=== PATIENT | female | born 1955 | race Caucasian/White ===

== ENCOUNTER → 2023-03-02 | Emergency (ER) | payer OTHER ==
[~2023-03-02] MED LIST: TDAP (DIPHTH,PERTUSS(ACELL),TET VAC) 0.5 ML VIAL IMVAC ONE
--- NOTE | 2023-03-02 13:39 | RAD REPORT ---
EXAM DESCRIPTION: RAD - Hand Left 3 View - 03/02/2023 1:29 pm CLINICAL HISTORY: 4th digit distal injury COMPARISON: No comparisons FINDINGS: Comminuted fracture of the distal phalanx of the fourth finger is seen with mild soft tiss ue swelling. Elsewhere no acute fractures seen.
--- NOTE | 2023-03-02 14:16 | EDPHYS ---
Physician Documentation [facility] Name: Adrienne Kruse Age: 67 yrs Sex: Female : 1955 Arrival Date: 03/02/2023 Time: 12:28 Bed 9 Private MD: ED Physician Chino Pelletier HPI: 03/02 13:21 This 67 yrs old Female presents to ER via Ambulatory with complaints of ec2 Finger Injury. 13:21 Patient arrives today for evaluation of injury to the left fourth finger. States that ec2 she was drilling something and subsequently slipped and it injured the distal portion. Reports no other injuries, unsure of her tetanus shot.. Historical: - Allergies: 12:52 No Known Allergies; ll1 - PMHx: 12:52 None; ll1 - PSHx: 12:52 None; ll1 - Immunization history:: Adult Immunizations up to date, Last tetanus immunization: < 10 years ago. - Social history:: Smoking status: Patient reports the use of cigarette tobacco products, smokes one pack cigarettes per day. ROS: 13:21 Constitutional: as per hpi ec2 Exam: 13:21 Constitutional: GEN: NAD Head: atraumatic Eyes: EOMI Ears: External ears are ec2 normal. CV: regular rate LUNGS: no respiratory distress ABD: non-distended SKIN: Left fourth digit with left distal phalanx noted to have a small puncture wound to the proximal portion of the distal phalanx. MSK: no evidence of trauma NEURO: moves all extremities equally Vital Signs: 12:50 BP 133 / 80; Pulse 70; Resp 16; Temp 97.4; Pulse Ox 95% ; Weight 104.33 kg; Height 5 ll1 ft. 9 in. ; Pain 0/10; 12:50 Body Mass Index 33.96 (104.33 kg, 175.26 cm) ll1 12:50 Pain Scale: Adult ll1 MDM: 12:59 Patient medically screened. ec2 13:21 Data reviewed: vital signs. ED course: Patient arrives today for evaluation of a left ec2 fourth digit injury. Examination remarkable for findings as above. Will update patient's tetanus status, also obtain a radiograph of the left hand. Considering soft tissue injury, bony fracture. Patient is already made statement that she would not like to have surgery and would not be admitted. . 14:15 ED course: Distal comminuted phalanx fracture of the second digit on the left hand, my ec2 concern is for an open fracture requiring urgent washout. I informed the patient of that, she would not want to be admitted, states that she does have a orthopedic surgeon that she follows with and she will get them a call. Will start her on antibiotics regardless.. 03/02 13:09 Order name: Hand Left 3 View XRAY; Complete Time: 14:01 ec2 03/02 14:14 Order name: Finger Splint; Complete Time: 14:33 ec2 Administered Medications: 13:01 Drug: Boostrix Tdap IM 0.5 ml IM once; as a single dose Route: IM; Site: right deltoid; as6 13:52 Follow up: Response: (VIS) Vaccine information sheet provided today. Questions and/or as6 concerns addressed. VIS edition date: Sep 13, 2020.; No adverse reaction Disposition Summary: 03/02/23 14:16 Discharge Ordered Condition: Stable ec2 Diagnosis - Open Finger Fracture ec2 Followup: ec2 - With: Private Physician - When: - Reason: Recheck today's complaints Discharge Instructions: - Discharge Summary Sheet ec2 - Finger Fracture, Adult, [id number] ec2 Forms: - Medication Reconciliation Form ec2 - Thank You Letter ec2 - Antibiotic Education ec2 - Prescription Opioid Use ec2 - Patient Portal Instructions ec2 - Leadership Thank You Letter ec2 Prescriptions: - Clindamycin HCl 300 mg Oral Capsule - take 1 capsule ORAL route every 6 hours for 10 days; 40 capsule; Refills: 0, ec2 Product Selection Permitted Signatures: Dispatcher [employer] Amada Grififth RN RN ll1 Zak Tse RN RN as6 Chino Pelletier MD MD ec2
--- NOTE | 2023-03-02 14:16 | ER ---
Nurse's Notes [facility] Name: Adrienne Kruse Age: 67 yrs Sex: Female : 1955 Arrival Date: 03/02/2023 Time: 12:28 Bed 9 Private MD: Diagnosis: Open Finger Fracture Presentation: 03/02 12:50 Chief complaint: Patient states: Drill bit accidentally drilled into L hand 4th digit ll1 last night. Coronavirus screen: Client denies travel out of the [place] in the last 14 days. At this time, the client does not indicate any symptoms associated with coronavirus-19. Ebola Screen: Patient denies travel to an Ebola-affected area in the 21 days before illness onset. Initial Sepsis Screen: Does the patient meet any 2 criteria? No. Patient's initial sepsis screen is negative. Does the patient have a suspected source of infection? Yes: Skin breakdown/wound. Risk Assessment: Do you want to hurt yourself or someone else? Patient reports no desire to harm self or others. Onset of symptoms was March 01, 2023. 12:50 Method Of Arrival: Ambulatory ll1 12:50 Acuity: DARIO 4 ll1 Triage Assessment: 12:53 General: Appears uncomfortable, Behavior is calm, cooperative, appropriate for age. ll1 Pain: Complains of pain in left hand Quality of pain is described as aching. Musculoskeletal: Circulation, motion, and sensation intact. Capillary refill < 3 seconds. Injury Description: Puncture. Historical: - Allergies: 12:52 No Known Allergies; ll1 - PMHx: 12:52 None; ll1 - PSHx: 12:52 None; ll1 - Immunization history:: Adult Immunizations up to date, Last tetanus immunization: < 10 years ago. - Social history:: Smoking status: Patient reports the use of cigarette tobacco products, smokes one pack cigarettes per day. Screenin:01 [facility] ED Fall Risk Assessment (Adult) Score/Fall Risk Level 0 - 2 = Low Risk. Abuse as6 screen: Denies threats or abuse. Denies injuries from another. Nutritional screening: No deficits noted. Tuberculosis screening: No symptoms or risk factors identified. Assessment: 13:01 Reassessment: Patient appears in no apparent distress at this time. Patient and/or as6 family updated on plan of care and expected duration. Pain level reassessed. Patient is alert, oriented x 3, equal unlabored respirations, skin warm/dry/pink. Vital Signs: 12:50 BP 133 / 80; Pulse 70; Resp 16; Temp 97.4; Pulse Ox 95% ; Weight 104.33 kg; Height 5 ll1 ft. 9 in. ; Pain 0/10; 12:50 Body Mass Index 33.96 (104.33 kg, 175.26 cm) ll1 12:50 Pain Scale: Adult ll1 ED Course: 12:32 Patient arrived in ED. ts1 12:44 Chino Pelletier MD is Attending Physician. ec2 12:52 Triage completed. ll1 12:53 Arm band placed on. ll1 12:55 Emely Martinez, RN is Primary Nurse. ph 13:01 Bed in low position. Call light in reach. as6 13:31 Hand Left 3 View XRAY In Process Unspecified. EDMS Administered Medications: 13:01 Drug: Boostrix Tdap IM 0.5 ml IM once; as a single dose Route: IM; Site: right deltoid; as6 13:52 Follow up: Response: (VIS) Vaccine information sheet provided today. Questions and/or as6 concerns addressed. VIS edition date: Sep 13, 2020.; No adverse reaction Medication: 13:01 Vaccine Information Statement (VIS) provided today. Questions and/or concerns as6 addressed. VIS edition date: September 13, 2020. Outcome: 14:16 Discharge ordered by . ec2 14:33 Patient left the ED. iw Signatures: Dispatcher [employer] Janeth Smyth RN RN iw Emely Martinez, Amada Fischer RN, ph, RN RN 1 Zak Tse RN RN as6 Yaritza Escamilla PAS PAS ts1 Chino Pelletier MD MD ec2
[2023-03-02 16:28] VITALS: BP 133/80; TEMP 97.4; O2SAT 95
== END ==
LOC: ER 12:28
DX: S62.665B Nondisplaced fracture of distal phalanx of left ring finger, initial encounter for open fracture (principal); F17.210 Nicotine dependence, cigarettes, uncomplicated
CPT/HCPCS: 96372; 99283

== ENCOUNTER 2024-07-04 12:36 | Emergency (ER) | payer OTHER ==
[2024-07-04] MEDS ORDERED: NA CHLORIDE 0.9% 1,000 ML ONE (13:31)
[2024-07-04 13:35] LABS: Absolute Basophils 0.1 K/uL (0-0.5); Absolute Eosinophils 0.3 K/uL (0-0.5); Absolute Lymphocytes (CBC) 1.7 K/uL (0.7-4.9); Absolute Monocytes 0.7 K/uL (0.1-1.3); Absolute Neutrophil 4.6 K/uL (1.8-8.0); Basophils % 0.7 % (0-1.3); Eosinophils % 3.7 % (0-4.4); Hematocrit 33.7 % (36.0-45.0); Lymphocytes % 23.1 % (15.3-44.8); MCH 33.9 pg (27.0-35.0); MCHC 35.8 g/dL (32.0-36.0); MCV 94.9 fL (80-100); MPV 10.7 fL (7.6-11.3); Monocytes % 9.1 % (3.3-12.3); Neutrophils % 63.4 % (41.7-73.7); Nucleated Red Blood Cells % 0.1 % (0-0); Platelets 189 thou/uL (152-406); RBC Red Blood Cell Count 3.55 M/uL (3.86-4.86); Red Cell Distribution Width 14.9 % (12.1-15.2)
[2024-07-04 13:42] LABS: PT Prothrombin Time 14.9 SECONDS (10-13.0); PTT, Activated Partial Thromb 35.8 SECONDS (27.2-37.4); Protime INR 1.32
[2024-07-04 13:53] LABS: Albumin 2.8 g/dL (3.4-5.0); Albumin/Globulin Ratio 0.7 (1.1-1.8); Anion Gap 11.3 mEq/L (5.0-15.0); Bilirubin Direct 9.6 mg/dL (0-0.2); Bilirubin Indirect, Calculated 1.6 mg/dL (0.2-0.8); Bilirubin Total 11.2 mg/dL (0.2-1.0); Globulin 3.9 g/dL (2.3-3.5); Potassium 3.3 mEq/L (3.5-5.1); Protein, Total 6.7 g/dL (6.4-8.2)
--- NOTE | 2024-07-04 14:27 | RAD REPORT ---
EXAMINATION: CT ABDOMEN AND PELVIS WITH CONTRAST CLINICAL INDICATION: diarrhea, jaundice TECHNIQUE: CT abdomen and pelvis was performed, after the administration of IV contrast, as per [facility] protocol. Axial, sagittal and coronal reconstructions were obtained. One or more of the following dose reduction techniques were used: Automated exposure control, adjustment of the mA and k V according to patient size, and iterative reconstruction. Unless otherwise specified, incidental findings do not require dedicated imaging follow-up. COMPARISON: No prior exam. FINDINGS: LOWER CHEST: The visualized lung bases are clear. LIVER: There is moderate to severe intrahepatic biliary tree dilatation. Grossly unremarkable gallbla dder. SPLEEN: Normal size. No focal lesion. PANCREAS: There is severe pancreatic ductal dilatation. Hypodense mass in the neck of the pancreas me asuring 37 x 13 mm. Vague low-density lesion measuring 16 mm in the region of the head of the pancreas near the uncinate process. ADRENALS: Normal; no mass. KIDNEYS: Normal size and contour. No hydronephrosis. GASTROINTESTINAL TRACT: No evidence of free air, significant intra-abdominal free fluid, bowel obstru ction or abscess. APPENDIX: Normal appendix. LYMPH NODES: No lymphadenopathy. MUSCULOSKELETAL: Mild multilevel spinal degenerative changes. IMPRESSION: Severe intrahepatic and pancreatic ductal dilatation suggestive of a obstructing mass in the pancreat ic head region. Vague low-density lesion is seen measuring 16 mm in the region. ERCP would be recommended for further evaluation. GI nonemergent consultation suggested. 37 x 13 mm low-density mass along the neck of the pancreas anteriorly.
--- NOTE | 2024-07-04 14:57 | EDPHYS ---
Physician Documentation [facility] Name: Adrienne Kruse Age: 68 yrs Sex: Female : 1955 Arrival Date: 07/04/2024 Time: 12:36 Bed 18 Private MD: ED Physician Mahendra Grande HPI: 07/04 14:12 This 68 yrs old Female presents to ER via Ambulatory with complaints of Diarrhea. rt 14:12 Patient was in [place] about 1 month ago, states that she developed diarrhea, rt progressively worsening jaundice. Reports abdominal cramping but no overt pain. Reports nausea without vomiting as well as fatigue. Denies other acute complaints at this time, symptoms are moderate in severity, no other aggravating or alleviating factors.. Historical: - Allergies: 12:41 No Known Allergies; ss - PMHx: 12:41 a fib; Hypothyroidism; ss - PSHx: 12:41 wrist SX; ss - Immunization history:: Adult Immunizations up to date. - Infectious Disease History:: Denies. - Social history:: Smoking status: Patient denies any tobacco usage or history of. - Family history:: not pertinent. ROS: 14:12 Cardiovascular: Negative for chest pain, palpitations, and edema, Respiratory: Negative rt for shortness of breath, cough, wheezing, and pleuritic chest pain, MS/Extremity: Negative for injury and deformity, 14:12 Constitutional: Positive for fatigue, Negative for fever, 14:12 Eyes: Positive for icterus, 14:12 Abdomen/GI: Positive for nausea, diarrhea, 14:12 Skin: Positive for jaundice, Exam: 14:12 Constitutional: This is a well developed, well nourished patient who is awake, alert, rt and in no acute distress. Chest/axilla: Normal chest wall appearance and motion. Nontender with no deformity. No lesions are appreciated. Cardiovascular: Regular rate and rhythm with a normal S1 and S2. No gallops, murmurs, or rubs. Normal PMI, no JVD. No pulse deficits. Respiratory: Lungs have equal breath sounds bilaterally, clear to auscultation and percussion. No rales, rhonchi or wheezes noted. No increased work of breathing, no retractions or nasal flaring. Abdomen/GI: Soft, non-tender, with normal bowel sounds. No distension or tympany. No guarding or rebound. No evidence of tenderness throughout. 14:12 Eyes: Scleral icterus noted. 14:12 Skin: Skin is jaundiced. Vital Signs: 12:48 BP 122 / 69; Pulse 60; Resp 16; Temp 96.3; Pulse Ox 98% on R/A; Weight 97.07 kg; Height ss 5 ft. 8 in. ; Pain 1/10; 13:30 BP 118 / 67; Pulse 63; Resp 16; Pulse Ox 100% ; dd2 14:23 BP 121 / 64; Pulse 61; Resp 16; Pulse Ox 100% on R/A; dd2 14:23 BP 126 / 67; Pulse 68; Resp 17; Pulse Ox 100% on R/A; dd2 12:48 Body Mass Index 32.54 (97.07 kg, 172.72 cm) ss 12:48 Pain Scale: Adult ss [place] Coma Score: 12:59 Eye Response: spontaneous(4). Motor Response: obeys commands(6). Verbal Response: dd2 oriented(5). Total: 15. MDM: 12:46 Medical Screening Exam initiated rt 15:38 Differential diagnosis: Hepatitis, viral syndrome, liver failure, pancreatic mass. Data rt reviewed: vital signs, nurses notes, lab test result(s), EKG, radiologic studies. Consideration of Admission/Observation Recommended the patient be transferred for higher level of care, she declines transfer at this time, will leave AGAINST MEDICAL ADVICE. Instructed patient to follow-up as an outpatient.. I considered the following discharge prescriptions or medication management in the emergency department Medications were administered in the Emergency Department. See MAR. Independent interpretation of the following test(s) in the Emergency Department CT Scan: My interpretation is Biliary ductal dilation seen on interpretation of CT scan images. Care significantly affected by the following chronic conditions: Atrial fibrillation. Counseling: I had a detailed discussion with the patient and/or guardian regarding the historical points, exam findings, and any diagnostic results supporting the discharge/admit diagnosis, lab results, radiology results. Response to treatment: There is no appreciated change of the patient's symptoms at this time. 07/04 13:04 Order name: CBC with Diff; Complete Time: 13:50 rt 07/04 13:04 Order name: Lipase; Complete Time: 14:11 rt 07/04 13:04 Order name: BMP; Complete Time: 14:11 rt 07/04 13:04 Order name: LFT's; Complete Time: 14:11 rt 07/04 13:04 Order name: PT-INR; Complete Time: 13:50 rt 07/04 13:04 Order name: Ptt, Activated; Complete Time: 13:50 rt 07/04 13:04 Order name: Hepatitis Panel; Complete Time: 15:13 rt 07/04 13:04 Order name: UA Rfx Matthew Cult if indicated; Complete Time: 15:06 rt 07/04 13:04 Order name: CT Abd/Pelvis - IV Contrast Only; Complete Time: 14:29 rt 07/04 13:04 Order name: IV Saline Lock; Complete Time: 13:42 rt 07/04 13:04 Order name: Labs collected and sent; Complete Time: 13:42 rt Administered Medications: 13:42 Drug: NS 0.9% IV 1000 ml IV at 1 bolus Per protocol; to be given as a bolus over 60 dd2 minutes Route: IV; Rate: 1 bolus; Site: left antecubital; 15:29 Follow up: IV Status: Completed infusion dd2 Disposition Summary: 07/04/24 14:56 Left Against Medical Advice Notes: Location: Home rt Problem: new rt Symptoms: are unchanged rt Condition: Fair rt Diagnosis - Pancreatic mass rt - Hyperbilirubinemia rt - Transaminitis rt Followup: rt - With: Private Physician - When: 1 - 2 days - Reason: Discharge Instructions: - Discharge Summary Sheet rt - Pancreatic Cancer rt - Bilirubin Test rt Signatures: Dispatcher [employer] EDCarly Hurst RN RN ss Mahendra Grande MD MD rt TALITA PALUMBO RN RN dd2 Corrections: (The following items were deleted from the chart) 13:04 13:04 CBC+H.LAB.BRZ ordered. EDMS EDMS 13:04 13:04 LIPASE+C.LAB.BRZ ordered. EDMS EDMS 13:04 13:04 BASIC METABOLIC PANEL+C.LAB.BRZ ordered. EDMS EDMS 13:04 13:04 HEPATIC FUNCTION+C.LAB.BRZ ordered. EDMS EDMS 13:04 13:04 PROTIME (+INR)+COAG.LAB.BRZ ordered. EDMS EDMS 13:04 13:04 PTT, ACTIVATED+COAG.LAB.BRZ ordered. EDMS EDMS 13:04 13:04 Acute Hepatitis Panel+SC.LAB.BRZ ordered. EDMS EDMS : 13: UA Rfx Matthew Cult if indicated+U.LAB.BRZ ordered. EDMS EDMS : 13:05 Abdomen Pelvis W Con+CT.RAD.BRZ ordered. EDMS EDMS
--- NOTE | 2024-07-04 14:57 | ER ---
Nurse's Notes [facility] Name: Adrienne Kruse Age: 68 yrs Sex: Female : 1955 Arrival Date: 07/04/2024 Time: 12:36 Bed 18 Private MD: Diagnosis: Pancreatic mass;Hyperbilirubinemia;Transaminitis Presentation: 07/04 12:48 Chief complaint: Patient states: Diarrhea started in [place] 1 month ago. Eyes started ss to turn yellow yesterday so she came in to get checked. Coronavirus screen: Client denies travel out of the [place] in the last 14 days. At this time, the client does not indicate any symptoms associated with coronavirus-19. Ebola Screen: Patient denies travel to an Ebola-affected area in the 21 days before illness onset. Initial Sepsis Screen: Does the patient meet any 2 criteria? No. Patient's initial sepsis screen is negative. Does the patient have a suspected source of infection? No. Patient's initial sepsis screen is negative. Risk Assessment: Do you want to hurt yourself or someone else? Patient reports no desire to harm self or others. Onset of symptoms was June 04, 2024. 12:48 Method Of Arrival: Ambulatory ss 12:48 Acuity: DARIO 2 ss Historical: - Allergies: 12:41 No Known Allergies; ss - PMHx: 12:41 a fib; Hypothyroidism; ss - PSHx: 12:41 wrist SX; ss - Immunization history:: Adult Immunizations up to date. - Infectious Disease History:: Denies. - Social history:: Smoking status: Patient denies any tobacco usage or history of. - Family history:: not pertinent. Screenin:59 [facility] ED Fall Risk Assessment (Adult) History of falling in the last 3 months, dd2 including since admission No falls in past 3 months (0 pts) Confusion or Disorientation No (0 pts) Intoxicated or Sedated No (0 pts) Impaired Gait No (0 pts) Mobility Assist Device Used No (0 pt) Altered Elimination No (0 pt) Score/Fall Risk Level 0 - 2 = Low Risk Oriented to surroundings, Maintained a safe environment, Educated pt \T\ family on fall prevention, incl call for assistance when getting out of bed, Assessed \T\ reinforced patient's understanding of fall precautions, Hourly rounding (assess needs \T\ fall precautionary measures) done. Abuse screen: Denies threats or abuse. Denies injuries from another. Nutritional screening: No deficits noted. Tuberculosis screening: No symptoms or risk factors identified. Assessment: 12:59 General: Appears in no apparent distress. comfortable, Behavior is calm, cooperative, dd2 appropriate for age. Pain: Denies pain. Neuro: No deficits noted. Cardiovascular: No deficits noted. Respiratory: No deficits noted. GI: Abdomen is non-distended, Bowel sounds present X 4 quads. Abd is soft and non tender X 4 quads. Reports diarrhea. : Reports dark urine. EENT: No deficits noted. No signs and/or symptoms were reported regarding the EENT system. Derm: Skin is intact, Skin is jaundiced. Musculoskeletal: No deficits noted. No signs and/or symptoms reported regarding the musculoskeletal system. Circulation, motion, and sensation intact. Range of motion: intact in all extremities. Vital Signs: 12:48 BP 122 / 69; Pulse 60; Resp 16; Temp 96.3; Pulse Ox 98% on R/A; Weight 97.07 kg; Height ss 5 ft. 8 in. ; Pain 1/10; 13:30 BP 118 / 67; Pulse 63; Resp 16; Pulse Ox 100% ; dd2 14:23 BP 121 / 64; Pulse 61; Resp 16; Pulse Ox 100% on R/A; dd2 14:23 BP 126 / 67; Pulse 68; Resp 17; Pulse Ox 100% on R/A; dd2 12:48 Body Mass Index 32.54 (97.07 kg, 172.72 cm) ss 12:48 Pain Scale: Adult ss [place] Coma Score: 12:59 Eye Response: spontaneous(4). Motor Response: obeys commands(6). Verbal Response: dd2 oriented(5). Total: 15. ED Course: 12:40 Patient arrived in ED. gl 12:40 Mahendra Grande MD is Attending Physician. rt 12:41 Arm band placed on Patient placed in an exam room, on a stretcher. ss 12:49 Triage completed. ss 12:57 TALITA PALUMBO, DAREN is Primary Nurse. dd2 12:59 Patient has correct armband on for positive identification. Bed in low position. Call dd2 light in reach. Side rails up X 1. Client placed on continuous cardiac and pulse oximetry monitoring. NIBP monitoring applied. Door closed. Noise minimized. Warm blanket given. Pillow given. Verbal reassurance given. 12:59 Patient maintains SpO2 saturation greater than 95% on room air. dd2 13:43 Hepatitis Panel Sent. dd2 13:43 LFT's Sent. dd2 13:43 BMP Sent. dd2 13:43 No provider procedures requiring assistance completed. Initial lab(s) drawn, by me, dd2 sent to lab. Inserted saline lock: 20 gauge in left antecubital area, using aseptic technique. Blood collected. Flushed with 10 mL NS. Missed attempt(s): 20 gauge Bleeding controlled, band aid applied, catheter tip intact. 14:08 CT Abd/Pelvis - IV Contrast Only In Process Unspecified. EDMS 15:27 Provided Education on: AMA EDUCATION. dd2 15:27 IV discontinued, intact, bleeding controlled, No redness/swelling at site. Pressure dd2 dressing applied. Administered Medications: 13:42 Drug: NS 0.9% IV 1000 ml IV at 1 bolus Per protocol; to be given as a bolus over 60 dd2 minutes Route: IV; Rate: 1 bolus; Site: left antecubital; 15:29 Follow up: IV Status: Completed infusion dd2 Medication: 12:59 VIS not applicable for this client. dd2 Outcome: 15:27 AMA AMA form signed dd2 15:27 Condition: stable 15:27 Discharge instructions given to patient, Instructed on AMA EDUCATION Demonstrated understanding of AMA EDUCATION 15:29 Patient left the ED. dd2 Signatures: Dispatcher [employer] EDMS Carly Alanis RN RN ss Mahendra Grande MD MD rt TALITA PALUMBO RN RN dd2 Kenna [place], Reg Reg gl
[2024-07-04 14:59] LABS: Specific Gravity > 1.030 (1.005-1.030); Sqamous Epithelial <5 /HPF (None Seen); Urine Bacteria None Seen /HPF (<20); Urine Bilirubin 4+ (Over) (Negative); Urine Blood Negative (Negative); Urine Clarity Extremely Turbid (Clear); Urine Color Dark-Yellow (Yellow); Urine Culture Reflex Order NOT NEEDED; Urine Glucose NEGATIVE (Negative); Urine Ketones NEGATIVE (Negative); Urine Microscopic Reflex YN ORDER UMIC; Urine Mucus 1+ /HPF (None Seen); Urine Nitrite NEGATIVE (Negative); Urine Protein TRACE (Negative); Urine RBC None Seen /HPF (None Seen); Urine Urobilinogen 2+ (Normal); Urine WBC <5 /HPF (<5)
[2024-07-04 15:10] LABS: Hepatitis B Core IgM Nonreactive (Nonreactive); Hepatitis B surface AG Interp. Nonreactive (Nonreactive); Hepatitis C Virus Ab Nonreactive (Nonreactive)
[2024-07-04 15:11] LABS: HBsAG Nonreactive Report Report
[2024-07-04 15:41] VITALS: TEMP 96.3
[2024-07-04 15:43] VITALS: O2SAT 100
[2024-07-04 15:45] VITALS: BP 126/67
== END 2024-07-04 15:29 | disposition left against medical advice (07) ==
LOC: ER 12:36
DX: K86.89 Other specified diseases of pancreas (principal); E80.6 Other disorders of bilirubin metabolism; R74.01 Elevation of levels of liver transaminase levels; R19.7 Diarrhea, unspecified; R53.83 Other fatigue; R11.0 Nausea
CPT/HCPCS: 96361; 85025; 81001; 80048; 36415; 85610; 80076; 85730; 83690; 80074; 74177; 96360; 99284; Q9967; J7030